=== PATIENT | male | born 1970 | race Caucasian/White ===

== ENCOUNTER 2019-06-21 05:14 | Inpatient (IN) | payer OTHER ==
[2019-06-16 10:48] VITALS: BMI 46.1
[2019-06-21] VITALS (34 sets, daily range): BP systolic 98–135; BP diastolic 60–85; PULSE 65–80; RESP 15–26; Ht 180.3 cm; Wt 149.1 kg
[~2019-06-21] VITALS: Ht 180.3 cm; Wt 149.1 kg
[2019-06-21] MEDS ORDERED: GELATIN SIZE 100 SPONGE ONE (06:49)
[2019-06-21] MEDS ORDERED: BUPIVACAINE 0.25% (MPF) 30 ML INJ ONE (06:49)
[2019-06-21] MEDS ORDERED: POLYMYXIN/BACITRACIN 1L IRRIG ONE (06:49)
[2019-06-21] MEDS ORDERED: THROMBIN 5000 UNIT (RECOTHROM) VIAL ONE (06:49)
[2019-06-21] MEDS ORDERED: CEFAZOLIN 2 GM/50 ML (PMX) 50 ML IVPB SCH (07:00)
[2019-06-21] MEDS ORDERED: LACTATED RINGER'S 1,000 ML IV SCH (07:00)
[2019-06-21] MEDS ORDERED: ROCURONIUM 50 MG INJ ONE (07:07)
[2019-06-21] MEDS ORDERED: PROPOFOL 20 ML ONE (07:07)
[2019-06-21] MEDS ORDERED: LIDOCAINE 2% (SDV) 5 ML INJ ONE (07:07)
[2019-06-21] MEDS ORDERED: SEVOFLURANE 15 MIN ONE (07:07)
[2019-06-21] MEDS ORDERED: HYDROmorphONE 2 MG/ML SYG ONE (07:35)
[2019-06-21] MEDS ORDERED: DEXAMETHASONE 4 MG/ML 5 ML INJ ONE (07:57)
[2019-06-21] MEDS ORDERED: ONDANSETRON 4 MG INJ ONE ×2 (07:58→10:39)
[2019-06-21] MEDS ORDERED: LABETALOL HCL 20MG INJ ONE ×2 (07:58→09:13)
[2019-06-21] MEDS ORDERED: SUGAMMADEX SODIUM 200 MG/2 ML VIAL IV ONE (10:26)
[2019-06-21] MEDS ORDERED: MEPERIDINE 25 MG INJ ONE (10:39)
[2019-06-21] MEDS: MEPERIDINE 25 MG INJ IV PRN ×2 (10:46→12:42)
[2019-06-21] MEDS ORDERED: NALOXONE (0.4 MG/ML) INJ IV PRN (11:00)
[2019-06-21] MEDS ORDERED: BETHANECHOL 25 MG TAB PO PRN (11:00)
[2019-06-21] MEDS ORDERED: ZOLPIDEM 5 MG TAB PO PRN (11:00)
[2019-06-21] MEDS ORDERED: FENTAnyl 50 MCG/ML VIAL IV PRN ×2 (11:00)
[2019-06-21] MEDS ORDERED: ACETAMINOPHEN 325 MG TAB PO PRN (11:00)
[2019-06-21] MEDS ORDERED: hydrALAzine 20 MG INJ IV PRN (11:00)
[2019-06-21] MEDS ORDERED: DIAZEPAM 10 MG/2 ML SYG IM PRN (11:00)
[2019-06-21] MEDS ORDERED: ALBUTEROL 0.083% (NEB) 2.5 MG/3 ML AMP HHN PRN (11:00)
[2019-06-21] MEDS ORDERED: HYDROCODONE/APAP (5/325) TAB PO PRN (11:00)
[2019-06-21] MEDS ORDERED: CEPASTAT LOZENGE MT PRN (11:00)
[2019-06-21] MEDS ORDERED: AL HYDROX/MG HYDROX/SIMETH 30 ML CUP PO PRN (11:00)
[2019-06-21] MEDS ORDERED: OXYCODONE/ACETAMINOPHEN (5/325) TAB PO PRN ×2 (11:00)
[2019-06-21] MEDS ORDERED: LABETALOL HCL 20MG INJ IV PRN (11:00)
[2019-06-21] MEDS ORDERED: DIAZEPAM 5 MG TAB PO PRN (11:00)
[2019-06-21] MEDS ORDERED: ONDANSETRON 4 MG INJ IV PRN ×2 (11:00)
[2019-06-21] MEDS ORDERED: NACL 0.9% 3 ML SYG IV SCH (11:00)
[2019-06-21] MEDS ORDERED: HYDROmorphONE 1 MG/5 ML IV SYRINGE IV PRN ×3 (11:00)
[2019-06-21] MEDS ORDERED: TRIMETHOBENZAMIDE 100 MG/ML VIAL IM PRN (11:00)
[2019-06-21] MEDS ORDERED: KETOROLAC 30 MG INJ IV PRN (11:00)
[2019-06-21] MEDS ORDERED: DIPHENHYDRAMINE 50 MG CAP PO PRN (11:00)
[2019-06-21] MEDS ORDERED: METOCLOPRAMIDE 10 MG INJ IV PRN (11:00)
[2019-06-21] MEDS ORDERED: PROCHLORPERAZINE 10 MG TAB PO PRN (11:00)
[2019-06-21] MEDS ORDERED: EPHEDrine 25 MG/5 ML SYG IV PRN (11:00)
[2019-06-21] MEDS ORDERED: DIPHENHYDRAMINE 50 MG INJ IV PRN (11:00)
[2019-06-21] MEDS: HYDROmorphONE 0.2 MG/ML PCA IV SCH ×2 (11:25→18:41)
[2019-06-21] MEDS: FENTAnyl 50 MCG/ML VIAL IV PRN ×2 (11:59→12:09)
[2019-06-21] MEDS: DEXTROSE 5%-0.45% NACL 1,000 ML IV SCH (17:07)
[2019-06-21] MEDS: RANITIDINE 150 MG TAB PO SCH (21:00)
[2019-06-22] VITALS: BP 126/58; PULSE 67; RESP 18
[2019-06-22] MEDS: DEXTROSE 5%-0.45% NACL 1,000 ML IV SCH (02:42)
[2019-06-22 07:17] VITALS: BP 142/80; PULSE 61; RESP 17
[2019-06-22] MEDS ORDERED: BETHANECHOL 25 MG TAB PO PRN (08:00)
[2019-06-22] MEDS ORDERED: DOCUSATE SODIUM 100 MG CAP PO SCH (09:00)
[2019-06-22] MEDS ORDERED: ASCORBIC ACID 500 MG TAB PO SCH (09:00)
[2019-06-22] MEDS: RANITIDINE 150 MG TAB PO SCH (09:25)
[2019-06-22] MEDS: FERROUS SULFATE (EC) 325 MG TAB PO SCH ×2 (09:25→12:57)
[2019-06-22] MEDS: HYDROCODONE/APAP (5/325) TAB PO PRN ×2 (09:27→10:56)
[2019-06-22 14:23] VITALS: BP 128/81; PULSE 69; RESP 15
== END 2019-06-22 18:00 | disposition home or self-care (01) | DRG 519 ==
LOC: REC 05:14 → EDSTATUS 07:00 → MS1 12:42
PROVIDERS: ADMIT Orthopaedic Surgery; ATTEND Orthopaedic Surgery
PROC: 0SB20ZZ Excision of Lumbar Vertebral Disc, Open Approach (ICD-10-PCS; 2019-06-21)
PROC: 4A11X4G Monitoring of Peripheral Nervous Electrical Activity, Intraoperative, External Approach (ICD-10-PCS; 2019-06-21)
PROC: 00NY0ZZ Release Lumbar Spinal Cord, Open Approach (ICD-10-PCS; principal; 2019-06-21 07:00)
DX: M48.061 Spinal stenosis, lumbar region without neurogenic claudication (principal); Z68.42 Body mass index [BMI] 45.0-49.9, adult; E66.01 Morbid (severe) obesity due to excess calories; I10 Essential (primary) hypertension; E78.5 Hyperlipidemia, unspecified; E11.9 Type 2 diabetes mellitus without complications; Z98.84 Bariatric surgery status; Z90.49 Acquired absence of other specified parts of digestive tract
CPT/HCPCS: 72020; 80048; 82962; 85014; 85018; 86850; 86900; 86901; 86920; 87086; 88304; 88311; 97110; 97116; 97162; J0690; J1100; J1170; J2175; J2405; J3010; J7042; J7120